=== PATIENT | male | born 1955 | race Caucasian/White ===

== ENCOUNTER 2016-11-27 09:05 | Day surgery (SDC) | payer OTHER ==
[~2016-11-27 09:05] MED LIST: IV START KIT ONE; LACTATED RINGERS 1,000 ML IV SCH; LACTATED RINGERS 1,000 ML ONE
[2016-11-27 14:29] LABS: HELICOBACTER PYLORII DETECTION NEGATIVE (NEGATIVE)
--- NOTE | 2016-11-29 10:36 | SURGPATH ---
[facility] [address] [place] [id number] Patient Name: MORAIMA SIMS MR#: [id number] : 1955 Gender: M Specimen #: [id number] Collected: 11/27/2016 Received: 11/28/2016 Reported: 11/29/2016 Submitting Phys: TERESSA GORDON Copy To Phys: [facility] TICO WILDER Clinical History / Pre-Operative Diagnosis: DYSPHAGIA; HEARTBURN; KNOWN ESOPHAGEAL STRICTURE; RULE OUT GASTRITIS AND ESOPHAGITIS Specimen Source / Surgical Procedure Performed: #1-ANTRAL BIOPSY; #2-ESOPHAGEAL BIOPSY AT 38 CM Interpretation: 1, 2. GASTRIC ANTRUM, ESOPHAGUS AT 38 CM, BIOPSIES: - NO PATHOLOGIC DIAGNOSIS Electronically Signed Out Go Zavala M.D. Gross Description: #1 The specimen is received in a formalin filled container labeled with the patient's name and "antral biopsy". Two barrientos biopsies are each 0.3 cm. Totally embedded in cassette #1. #2 The specimen is received in a formalin filled container labeled with the patient's name and "esophageal biopsy at 38 cm". Two dillon biopsies are each 0.3 cm. Totally embedded in cassette #2. Ruben Soliman Microscopic Description: 1. Levels reveal gastric mucosa with an unremarkable architecture and few chronic inflammatory cells in the lamina propria. Ulceration, acute inflammation, intestinal metaplasia, Helicobacter organisms, dysplasia and malignancy are not present. 2. Levels reveal fragments of squamous mucosa that lack ulceration, inflammation, dysplasia and malignancy. 1: 13625 2: 19992 R13.10
== END 2016-11-27 10:51 | disposition home or self-care (01) ==
LOC: SDC 09:05
PROVIDERS: ATTEND Internal Medicine Gastroenterology
PROC: 0D748ZZ Dilation of Esophagogastric Junction, Via Natural or Artificial Opening Endoscopic (ICD-10-PCS; principal; 2016-11-27)
PROC: 0DB68ZX Excision of Stomach, Via Natural or Artificial Opening Endoscopic, Diagnostic (ICD-10-PCS; 2016-11-27)
PROC: 0DB58ZX Excision of Esophagus, Via Natural or Artificial Opening Endoscopic, Diagnostic (ICD-10-PCS; 2016-11-27)
DX: K22.2 Esophageal obstruction (principal); K29.70 Gastritis, unspecified, without bleeding; K29.80 Duodenitis without bleeding; I10 Essential (primary) hypertension; E78.5 Hyperlipidemia, unspecified; M79.1 Myalgia; G89.29 Other chronic pain; F32.9 Major depressive disorder, single episode, unspecified; Z88.8 Allergy status to other drugs, medicaments and biological substances
CPT/HCPCS: 87081; 43249; 43239; J7120 ×2